=== PATIENT | male | born 1980 | race African-American/Black ===

== ENCOUNTER 2020-12-30 08:53 | Emergency (ER) | payer OTHER ==
[~2020-12-30] VITALS: Ht 167.6 cm; Wt 72.6 kg
--- NOTE | 2020-12-30 09:11 | NUR ---
[facility] UNIT A43 AT BEDSIDE
[2020-12-30] MEDS ORDERED: IBUPROFEN 600 MG TABLET PO ONE (10:00)
[2020-12-30] MEDS ORDERED: IBUP-1955 PO (10:08)
[2020-12-30] MEDS ORDERED: IBUPROFEN 600 MG TABLET ONE (10:16)
[2020-12-30 10:39] VITALS: BP 119/71
== END 2020-12-30 10:40 | disposition home or self-care (01) ==
LOC: ER 09:03
DX: R07.89 Other chest pain (principal); F17.200 Nicotine dependence, unspecified, uncomplicated; Z60.2 Problems related to living alone; Y04.0XXA Assault by unarmed brawl or fight, initial encounter; Y93.89 Activity, other specified; Y92.89 Other specified places as the place of occurrence of the external cause; Y99.8 Other external cause status
CPT/HCPCS: 71045-TC

== ENCOUNTER 2020-12-30 12:40 | Emergency (ER) | payer OTHER ==
[~2020-12-30] VITALS: Ht 167.6 cm; Wt 73.5 kg
[~2020-12-30 12:40] MED LIST: IBUP-1955 PO
[2020-12-30 13:20] LABS: BASOPHILS % (AUTO) 0.5 % (0.0-2.0); EOSINOPHILS % (AUTO) 2.1 % (0.0-6.0); HEMATOCRIT 42 % (39-51); HEMOGLOBIN 13.9 g/dL (13.5-17.5); MEAN CORPUSCULAR HGB CONC 33 g/dl (31.0-36.0); MEAN CORPUSCULAR VOLUME 94 fL (80-96); MONOCYTES # (AUTO) 0.9 K/uL (0.1-1.30); MONOCYTES % (AUTO) 13.9 % (2.0-12.0); NEUTROPHILS # (AUTO) 3.3 K/uL (1.8-8.9); NEUTROPHILS % (AUTO) 52.5 % (43.0-81.0); PLATELET COUNT (AUTO) 351 K/uL (150-450); WHITE BLOOD COUNT (AUTO) 6.4 K/uL (4.3-11.0)
[2020-12-30 13:34] LABS: CALCIUM, SERUM 8.5 mg/dL (8.5-10.1); CARBON DIOXIDE 26 mmol/L (21-32); CHLORIDE 103 mmol/L (98-107); CREATININE 1.1 mg/dL (0.6-1.3); GLUCOSE 106 mg/dL (74-106); POTASSIUM 4.2 mmol/L (3.5-5.1); SODIUM SERUM 140 mmol/L (136-145); UREA NITROGEN, BLOOD 14 mg/dL (7-18)
[2020-12-30 13:40] LABS: ALANINE AMINOTRANSFERASE 26 U/L (12-78); ALBUMIN 3.5 g/dL (3.4-5.0); ALCOHOL, BLOOD < 3 mg/dL (0-0); ALKALINE PHOSPHATASE 102 U/L (46-116); ASPARTATE AMINOTRANSFERASE 27 U/L (15-37); BILIRUBIN,DIRECT 0.2 mg/dL (0.0-0.2); BILIRUBIN,TOTAL 1.3 mg/dL (0.2-1.0); TOTAL PROTEIN, SERUM 8.1 g/dL (6.4-8.2)
[2020-12-30 13:43] LABS: ACETAMINOPHEN 0 ug/ml (10-30)
[2020-12-30 13:50] LABS: BILIRUBIN,URINE Negative (NEGATIVE); COLOR,URINE YELLOW (YELLOW); LEUKOCYTE ESTERASE ,URINE Negative (NEGATIVE); NITRITE, URINE Negative (NEGATIVE); PROTEIN,URINE Negative (NEGATIVE); UGLUCOSE Negative (NEGATIVE); UROBILINOGEN,URINE 0.2 EU/dL (0.2)
--- NOTE | 2020-12-30 13:55 | NUR ---
patient came in to the er c/o suicidal ideation, hearing voices. on room air, breathing evenly and unlabored. Continue to monitor accordingly.
--- NOTE | 2020-12-30 15:48 | NUR ---
Plan: DEBBIE referred pt. to [facility] [[address] [place] [id number] FAX:[phone]] for inpatient psychiatric treatment.
--- NOTE | 2020-12-30 16:38 | NUR ---
"SS Consult: SS Consult requested for SI & Homelessness. The pt. is a 40- year old Black male who presents to ED with C/O suicidal ideations with no plan. The pt. appears disheveled is A&O X3 and makes poor eye contact. Pt/ has blood shot eyes and presents guarded with slurred speech possible intoxication. Pt.'s mood is depressed with flat affect. Pt. denies visual hallucinations and states he is hearing voices. Pt. denies HI. DEBBIE offered pt. voluntary admission to a psych facility for treatment and pt. is agreeable. DEBBIE explored pt.'s mental health Hx. Pt. states he has been diagnosed with depression in the past. DEBBIE explored pt.'s living situation. Pt. admits he is experiencing homelessness. DEBBIE explored pt.'s drug & ETOH use. Patient stated he has hX. of polysubstance use. Pt. states he is ambulatory. DEBBIE explored pt.'s support system. Pt. states he has no support system. Pt. states he does not receive any financial assistance. Plan: DEBBIE referred pt. to [facility] for inpatient psychiatric treatment. Pt. signed homeless waiver and it was placed in the chart. DEBBIE provided pt. with homeless, and mental health resources and he accepted them : Year-round shelters: [facility] [place] [address] [place] [address] ; [facility] [place] [address] [place] [address]; [facility] [id number] [facility] [address] Winter Shelters: Kellen Garduno Provider: [facility] [place] Address: [address] [facility] [place], [address] # of Beds: 47 Population Served: [facility] 6 | [facility] Carlee [place] Provider: [facility] Address: [address] [place] [address], [address] # of Beds: 66 Population Served: [facility] [place] Provider: [facility] Address: [address] [facility], [address] # of Beds: 56 Population Served: [facility] [place] Provider: /[facility] Address: [address] [facility], [address] # of Beds: 49 Population Served: [facility] 8 | [place] Marylou Garduno Provider: [facility] Address: [address] [address] # of Beds: 37 Population Served: [facility] Hy[facility]: [facility]: [address] [place] ; [facility] [address] [facility] [place] ; [facility] [address], [place] . Food Resources: [place] [facility] at [facility]- [address] fa[facility]; Meet Each Need with Dignity ([facility]) [address] [facility]; [facility] [address] [facility]; [facility] 7967 [facility]. Mental Health resources provided: [facility] [address] [place], [place] [phone] ; [facility] [place] [address] [facility] [address], [place], [place] [id number] ; Celina Clare [facility] [address] [place] [address] ; [facility] [address] [place], [place] [phone] Healthcare Clinics: [facility] [address] [facility], [address] [place]. [place] ; [facility] [address] [facility] [address] [place] [address]; [facility] [address] [facility]. [place] [phone]) [phone] Counseling--Outpatient [facility] [address] [facility], [place] [address] (Specializes in in-depth psychotherapy for emotional distress: anxiety, depression, interpersonal conflicts, life transitions, childhood abuse) [facility] [address] [place], [place] [phone] (Assist with solving problem marital difficulties, separation & divorce, aging parents, & grief, chronic & terminal illness) [facility] [address] [place] [address] (Deal with loss & grief, anxiety, marital difficulties) Homebound/Mental Health Services [address] [facility] [address] [place], [place] [address] (Provide in-home mental services to people who are incapable of leaving their homes) [facility] of the Elderly Senior Service/Resource Center [address] [place] [address] [facility] [address] [place] [address] PSYCHIATRIC OUTPATIENT SERVICES [facility] Partial Hospitalization and Intensive Outpatient Program (Managed Care and Raymond Only)[address] Critical access hospital [phone] [facility] Partial Hospitalization and Outpatient [id number] [facility] [address] [place], [place] [phone] Pending sale to [facility] [place] [id number] [facility] [address] [place], [place] [phone] [facility] Partial Hospitalization and Outpatient [id number] [place], [phone] Substance Abuse resources provided included: [facility] Substance Abuse Self-Helpline (SAS) ; [facility] [address] [facility]. [place] [address] ; [facility] [address] [facility] [address] ; [facility] [address] [facility] [address] ; [facility] [address] [place] [address] [facility] [phone] ; [facility] [address] [place] [facility] [address] ; [facility] [address] [facility] [phone] ; [facility] Substance Abuse Helpline([facility] ; [facility] ; [facility]; [facility] [place]; [facility] [place]; [facility] [place]; [facility] [place]; [facility] [place]; [facility] [place]; [facility]'s [place], [facility]. [place]; Alcoholics Anonymous -SFV; Pu-Qoaw-Refvkil ; Marijuana Anonymous -SFV; Narcotics Anonymous www.na.org;"
--- NOTE | 2020-12-30 18:44 | NUR ---
covid swab done and sent to lab
--- NOTE | 2020-12-30 22:28 | NUR ---
F/U WITH [facility]. STILL REVIEWING REQUEST
--- NOTE | 2020-12-30 22:33 | NUR ---
COVID RESULT RESENT PER [facility]
--- NOTE | 2020-12-30 23:34 | NUR ---
FAX NUMBER:[phone]
--- NOTE | 2020-12-31 02:06 | NUR ---
CLINICALS RESENT TO [facility]
--- NOTE | 2020-12-31 03:06 | NUR ---
PT IS ACCEPTED AT THE [facility] UNDER THE CARE OF DR. LEE. PT IS GOING TO UNIT 2. CALL [phone]
--- NOTE | 2020-12-31 03:11 | NUR ---
PT WILL BE TRANSPORTED IN 1 TO 1.5 HOURS [facility]IA [facility] TO [facility].
--- NOTE | 2020-12-31 03:33 | NUR ---
REPORT IS GIVEN TO NURSE JOHNSON FOR [facility] AT THE [facility]
--- NOTE | 2020-12-31 04:42 | NUR ---
[facility] at bedside [facility] on stable condition. report given to emt.
[2020-12-31 04:50] VITALS: BP 114/71
--- NOTE | 2020-12-31 04:53 | NUR ---
PT LEFT ON [facility] WITH 2 EMT IN STABLE CONDITION
--- NOTE | 2020-12-31 05:15 | NUR ---
FAXED LABS AND RESULTS TO [facility]; SPOKE TO BERTHA
== END 2020-12-31 04:55 ==
LOC: ER 12:43
DX: F23 Brief psychotic disorder (principal); R45.851 Suicidal ideations; F19.10 Other psychoactive substance abuse, uncomplicated; Z20.822 Contact with and (suspected) exposure to COVID-19; Z59.0 Homelessness; Z82.49 Family history of ischemic heart disease and other diseases of the circulatory system
CPT/HCPCS: 36415; 80048; 80076; 80143; 80307; 80320; 81003; 85025; 87426; 99285; C9803; G0480